=== PATIENT | female | born 1985 | race Caucasian/White ===

== ENCOUNTER 2016-08-14 21:26 | Emergency (ER) | payer OTHER ==
[~2016-08-14] VITALS: Ht 177.8 cm; Wt 127.0 kg
[~2016-08-14 21:26] MED LIST: IBUPROFEN 600600 M1 PO; TRINATE TABLET1 TAB
[2016-08-14] MEDS ORDERED: ERYTHROMYCIN E3.5 G3 OPHTHALMIC (21:58)
[2016-08-14 22:42] VITALS: BP 114/58
== END 2016-08-14 22:43 | disposition home or self-care (01) ==
LOC: ER 21:26
DX: S05.01XA Injury of conjunctiva and corneal abrasion without foreign body, right eye, initial encounter (principal); F17.210 Nicotine dependence, cigarettes, uncomplicated; W50.4XXA Accidental scratch by another person, initial encounter; Y93.89 Activity, other specified; Y92.89 Other specified places as the place of occurrence of the external cause; Y99.8 Other external cause status

== ENCOUNTER 2016-10-25 10:42 | Emergency (ER) | payer OTHER ==
[~2016-10-25] VITALS: Ht 177.8 cm; Wt 122.9 kg
[~2016-10-25 10:42] MED LIST changes: +ERYTHROMYCIN E3.5 G3 OPHTHALMIC
[2016-10-25] MEDS ORDERED: IBUPROFEN 600600 M1 PO (11:13)
[2016-10-25] MEDS ORDERED: BACTRIM DS TAB1 EACH PO (11:13)
[2016-10-25 11:22] VITALS: BP 116/81
[2016-10-26] MEDS ORDERED: DOXYCYCLINE 10100 MG PO (10:50)
== END 2016-10-25 11:23 | disposition home or self-care (01) ==
LOC: ER 10:42
DX: L02.416 Cutaneous abscess of left lower limb (principal); F17.210 Nicotine dependence, cigarettes, uncomplicated

== ENCOUNTER 2016-10-26 09:25 | Emergency (ER) | payer OTHER ==
[~2016-10-26] VITALS: Ht 177.8 cm; Wt 122.9 kg
[~2016-10-26 09:25] MED LIST changes: +BACTRIM DS TAB1 EACH PO
[2016-10-26 10:06] LABS: ABSOLUTE NEUTROPHILS 5.2 thou/uL (1.4-8.2); BASOPHILS 0.2 % (0.0-2.0); HEMATOCRIT 42.1 % (37.0-47.0); LYMPHOCYTES 11.2 % (24.0-44.0); MCH 27.1 pg (26.0-34.0); MCHC 33.3 g/dL (28.0-37.0); MCV 81.4 fL (80.0-100.0); MONOCYTES 5.5 % (1.0-8.0); PLATELET COUNT 156 thou/uL (150-400); POLYS 82.1 % (36.0-66.0); RBC 5.18 mil/uL (4.20-5.00); RDW 14.3 % (10.5-14.5); WBC 6.3 thou/uL (4.0-11.0)
[2016-10-26 10:08] LABS: MANUAL DIFF NO
[2016-10-26 10:09] LABS: CALCIUM 9.1 mg/dL (8.5-10.1); CREATININE 1.1 mg/dL (0.6-1.0); POTASSIUM 3.8 mmol/L (3.5-5.1)
[2016-10-26 10:14] LABS: ALBUMIN 3.9 g/dL (3.4-5.0); TOTAL BILIRUBIN 0.3 mg/dL (<0.1-1.0)
[2016-10-26 10:18] LABS: APTT 30.2 Seconds (24.5-32.8); PROTIME 10.7 Seconds (9.3-11.4)
[2016-10-26] MEDS ORDERED: DOXYCYCLINE 10100 MG PO (10:50)
[2016-10-26 11:45] VITALS: BP 121/79
== END 2016-10-26 11:46 | disposition home or self-care (01) ==
LOC: ER 09:25
PROVIDERS: Nurse Practitioner
DX: L03.116 Cellulitis of left lower limb (principal); F17.210 Nicotine dependence, cigarettes, uncomplicated

== ENCOUNTER 2019-08-21 16:03 | Emergency (ER) | payer OTHER ==
[~2019-08-21] VITALS: Ht 180.3 cm; Wt 132.9 kg
[~2019-08-21 16:03] MED LIST changes: +DOXYCYCLINE 10100 MG PO
[2019-08-21 16:47] LABS: ABSOLUTE NEUTROPHILS 5.4 thou/uL (1.4-8.2); BASOPHILS 0.4 % (0.0-2.0); EOSINOPHILS 0.6 % (0.0-3.0); HEMATOCRIT 40.2 % (37.0-47.0); HEMOGLOBIN 13.4 gm/dL (12.0-15.0); LYMPHOCYTES 18.2 % (24.0-44.0); MCHC 33.4 g/dL (28.0-37.0); MCV 77.9 fL (80.0-100.0); MONOCYTES 6.4 % (1.0-8.0); PLATELET COUNT 177 thou/uL (150-400); POLYS 74.4 % (36.0-66.0); RBC 5.16 mil/uL (4.20-5.00); RDW 16.4 % (10.5-14.5); WBC 7.2 thou/uL (4.0-11.0)
[2019-08-21] MEDS ORDERED: NOHOMEMEDICATIONS (16:47)
[2019-08-21 17:07] LABS: ANION GAP 13 mmol/L (7-16); BUN 12 mg/dL (7-18); CHLORIDE 102 mmol/L (98-107); CO2 21 mmol/L (21-32); CREATININE 1.1 mg/dL (0.6-1.0); GLUCOSE 75 mg/dL (74-106); POTASSIUM 3.7 mmol/L (3.5-5.1); SODIUM 136 mmol/L (136-145)
[2019-08-21 17:11] LABS: ALBUMIN 3.8 g/dL (3.4-5.0); SALICYLATE 5.2 mg/dL (2.8-20.0); SGOT 33 U/L (15-37); SGPT 26 U/L (30-65); TOTAL BILIRUBIN 0.3 mg/dL (0.2-1.0); TOTAL PROTEIN 7.2 g/dL (6.4-8.2)
[2019-08-21 17:36] LABS: URINE BILIRUBIN 1+ (Negative); URINE BLOOD 2+ (Negative); URINE CLARITY CLEAR; URINE COLOR YELLOW; URINE GLUCOSE-RANDOM* NEGATIVE (Negative); URINE KETONES 3+ (Negative); URINE LEUKOCYTES-REFLEX TRACE (Negative); URINE NITRITE-REFLEX NEGATIVE (Negative); URINE PROTEIN (DIPSTICK) TRACE (Negative); URINE SPECIFIC GRAVITY >= 1.030 (1.005-1.035); URINE UROBILINOGEN 0.2 E.U./dl (0.2-1.0)
[2019-08-21 17:38] LABS: ICTOTEST (BILI CONFIRMATORY) Negative (Negative)
[2019-08-21 17:39] LABS: URINE REDUCING SUBSTANCE NEGATIVE
[2019-08-21 17:45] LABS: AMP/METHAMP Negative (Negative); BARBITURATES Negative (Negative); BENZODIAZEPINES Negative (Negative); COCAINE Negative (Negative); METHADONE Negative (Negative); OPIATES Negative (Negative); PCP Negative (Negative)
[2019-08-21 17:46] LABS: HYALINE CASTS 0-3 Few /LPF (None Seen); SQUAMOUS 0-3 Few /LPF (0-3)
[2019-08-21 17:47] LABS: BACTERIA-REFLEX 1-9 Few /HPF (None Seen); CRYSTALS None Seen /LPF (None Seen); URINE RBC 0-2 Rare /HPF (0-2); URINE WBC-REFLEX 0-5 Rare /HPF (0-5)
[2019-08-22 22:00] VITALS: BP 122/74
== END 2019-08-22 22:02 ==
LOC: ER 16:03
PROVIDERS: Emergency Medicine
DX: R45.851 Suicidal ideations (principal); F32.9 Major depressive disorder, single episode, unspecified; F12.90 Cannabis use, unspecified, uncomplicated; R20.0 Anesthesia of skin; J45.909 Unspecified asthma, uncomplicated; F17.210 Nicotine dependence, cigarettes, uncomplicated; Z91.013 Allergy to seafood; Z88.2 Allergy status to sulfonamides; Z72.89 Other problems related to lifestyle